=== PATIENT | female | born 1970 | race Caucasian/White ===

== ENCOUNTER 2018-04-10 09:15 | Emergency (ER) | payer OTHER, BC ==
[~2018-04-10] VITALS: Ht 177.8 cm; Wt 128.8 kg
[~2018-04-10 09:15] MED LIST: ALBUTEROL0.63 MG/3 NEB; BUTALB-ACETAMI1 EAC1; BUTALBIT-ACETA1 EACH PO; CLARITIN PO; DICLOFENAC SODI75 MG; DICYCLOMINE HCL20 MG PO; FLUTICASONE; GUMMI BEAR MUL1 EACH; HA MED; HYDROCHLOROTHIA25 MG PO; HYDROCODON-ACE1 EA11 PO; HYDROXYCHLOROQ200 MG PO; LASTACAFT3 ML OU; LORATADINE10 MG; MOBIC7.5 M1; NEXIUM40 MG PO; PANTANASE; TRAMADOL-ACETAMI1 EA; TYLENOL ER PO; ULTRAM 50MG50 MG PO; VENTOLIN HFA18 GM; VENTOLIN HFA18 GM INH; [UNRECOGNIZED DRUG - OTHER]; [UNRECOGNIZED DRUG - OTHER] RC
--- OUTSIDE RECORDS SUMMARY | 2018-04-10 09:19 | XMS REPORT | Encounter Summary ---
Author Organization Unknown Address [address] [place] [address] Phone [phone] Reason for Visit Medical Complaint Instructions 1. Acute respiratory distress patient follow up phone call 2. Acute exacerbation of asthma peak flow albuterol sulfate 2.5 mg/3 mL (0.083 %) solution for nebulization peak flow 3. Influenza-like symptoms rapid flu (A+B) 4. Body mass index 30+ - obesity body mass index: care instructions Discussion Note Pt is in NAD; Verbalizes understanding of all instructions with no questions at this time. Plan of Care Patient Instructions Based on the nature of your symptoms I recommend you report to the nearest ER immediately for further evaluation and recommendations. Reminders Provider Appointments None recorded. Lab Rapid Flu (A+B) 04/10/2018 [facility] Referral None recorded. Procedures None recorded. Surgeries None recorded. Imaging None recorded. Medications Name Start Date albuterol sulfate 2.5 mg/3 mL (0.083 %) solution for nebulization Give 1 inhalation every 20 minutes by nebulizer route as needed aspirin 81 mg chewable tablet Chew 1 tablet every day by oral route. Claritin Fioricet 50 mg-300 mg-40 mg capsule Take 1 capsule every 4 hours by oral route. Flucelvax Quad 6340-1922 (PF) 60 mcg (15 mcg x 4)/0.5 mL IM syringe TO BE ADMINISTERED BY PHARMACIST FOR IMMUNIZATION hydroxychloroquine 200 mg tablet niacin rosuvastatin 10 mg tablet Ventolin HFA 90 mcg/actuation aerosol inhaler Inhale 2 puffs every 4 hours by inhalation route. Xiidra 5 % eye drops in a dropperette Medications Administered Name Date albuterol sulfate 2.5 mg/3 mL (0.083 %) solution for nebulization Give 1 inhalation every 20 minutes by nebulizer route as needed [id number]:32 Vitals Height Weight BMI Blood Pressure 5 ft 9.5 in 273 lbs 39.7 kg/m2 118/78 mm[Hg] Lab Results Date Name Specimen Result Interpretation Description Value Range Status Address Peak Flow Pef 200 [facility]: 9 [facility] Percent Predicted Value 41 [facility]: 9 [facility] Rapid Flu (A+B) Influenza a negative [facility]: 9 [facility] Influenza B negative [facility]: 9 [facility] Peak Flow Pef 150 [facility]: 9 [facility] Percent Predicted Value 30% [facility]: 9 [facility] Allergies Code Code System Name Reaction Severity Status Onset 808144 RxNorm Dilaudid Active 4053 RxNorm Erythromycin Base Active Sulfa (Sulfonamide Antibiotics) Active Problems Name Status Onset Date Source Body Mass Index 30+ - Obesity Active 04/10/2018 Migraine Active 04/10/2018 Asthma Active 04/10/2018 Acute Exacerbation of Asthma Active 04/10/2018 Acute Respiratory Distress Active 04/10/2018 Gastroesophageal Reflux Disease Active 04/10/2018 Osteoarthritis Active 04/10/2018 Influenza-like Symptoms Active 04/10/2018 Procedures Date Name Performed by Information not available Tonsillectomy Information not available Cholecystectomy Information not available Hip Clevis Type 2 Posit Jnt Information not available Vaccine List Vaccine Type influenza, injectable, quadrivalent 03/25/2017 Social History Smoking Status Never Smoker Past Encounters 04/10/2018 Acute Respiratory Distress; Acute Exacerbation of Asthma; Influenza-like Symptoms; Body Mass Index 30+ - Obesity Cata Galdamez, [employer]: [address] [place] [address], Ph. History of Present Illness Wheezing / Cough Reported By: Patient HPI: Location: chest, nasal/sinus. Quality: congested, dyspnea, productive cough, dry cough, wheezy cough, wheezing, can't catch breath, can't get a deep breath. Severity: worsening, moderate. Duration: constant. Onset/Timing: gradual, daily. Context: no sick contacts, no foreign travel, allergies, hx of asthma. Modifying factors: OTC medication, inhaler:ventolin using how often?ventolin. Associated Symptoms: no fever, no chills, no sweats, no chest pain, no edema, no heartburn, no significant weight gain, no significant weight loss, no morning cough, no post nasal drip, no sore throat, no nausea, no vomiting, no diarrhea, no rash, no muscle aches, no headache, rust colored sputum, shortness of breath; nasal congestion, chest congestion, productive cough, and low grade fever Note:
Review of Systems:ROS as noted in the HPI Review of Systems Basic Reported By: Patient Physical Exam Adult Basic, Adult Female Complete Reported By: Patient Constitutional: General Appearance: obese. Level of Distress: mild distress. Ambulation: ambulating normally Psychiatric: Mental Status: active and alert. Orientation: to time, to place, to person Eyes: Lids and Conjunctivae: non-injected, no discharge, no pallor. Pupils: PERRLA. Corneas: grossly intact. EOM: EOMI. Lens: clear Oco-Baqz-Mwsxo-Throat: Ears: no lesions on external ear, no outer ear tenderness, EACs clear, TMs clear. Nose: no lesions on external nose, nares patent, no septal deviation, nasal passages clear, no sinus tenderness, nasal d ischarge--rhinorrhea, post nasal drip; B/L NTs pink and edematous. Lips, Teeth, and Gums: no mouth or lip ulcers, no bleeding gums, normal dentition. Oropharynx: moist mucous membranes, no erythema, no exudates, tonsils absent Neck: Neck: supple. Lymph Nodes: no cervical LAD Lungs: Respiratory effort: no dyspnea, no tachypnea, no use of accessory muscles, no intercostal retractions. Auscultation: breath sounds normal Cardiovascular: Heart Auscultation: RRR, no murmurs Neurologic: Gait and Station: normal gait, normal station. Cranial Nerves: grossly intact. Sensation: grossly intact Notes:
--- OUTSIDE RECORDS SUMMARY | 2018-04-10 09:19 | XMS REPORT | Continuity of Care Document ---
Author Author [facility] Interface Address Unknown Phone Unavailable Problems Problem Status Onset Date Classification Date Reported Comments Source Acute respiratory distress 04/10/2018 Diagnosis 04/10/2018 [facility] Body mass index 30+ - obesity 04/10/2018 Diagnosis 04/10/2018 [facility] Influenza-like symptoms 04/10/2018 Diagnosis 04/10/2018 [facility] Acute exacerbation of asthma 04/10/2018 Diagnosis 04/10/2018 [facility] Body Mass Index 30+ - Obesity 04/10/2018 Problem 04/10/2018 [facility] Migraine 04/10/2018 Problem 04/10/2018 [facility] Asthma 04/10/2018 Problem 04/10/2018 [facility] Acute Exacerbation of Asthma 04/10/2018 Problem 04/10/2018 [facility] Acute Respiratory Distress 04/10/2018 Problem 04/10/2018 [facility] Gastroesophageal Reflux Disease 04/10/2018 Problem 04/10/2018 [facility] Osteoarthritis 04/10/2018 Problem 04/10/2018 [facility] Influenza-like Symptoms 04/10/2018 Problem 04/10/2018 [facility] Medications Medication Details Route Status Patient Instructions Ordering Provider Order Date Source Albuterol 0.83 MG/ML Inhalant Solution albuterol sulfate 2.5 mg/3 mL (0.083 %) solution for nebulization Give 1 inhalation every 20 minutes by nebulizer route as needed Active [facility] Aspirin 81 MG Chewable Tablet aspirin 81 mg chewable tablet Chew 1 tablet every day by oral route. Active [facility] Claritin Claritin Active [facility] Acetaminophen 300 MG / butalbital 50 MG / Caffeine 40 MG Oral Capsule [Fioricet] Fioricet 50 mg-300 mg-40 mg capsule Take 1 capsule every 4 hours by oral route. Active [facility] 0.5 ML influenza A virus A/ (H1N1) antigen 0.03 MG/ML / influenza A virus A/ (H3N2) antigen 0.03 MG/ML / influenza B virus B/[place] antigen 0.03 MG/ML / influenza B virus B/ antigen 0.03 MG/ML Prefilled Syringe [Flucelvax Quadrivalent ] Flucelvax Quad (PF) 60 mcg (15 mcg x 4)/0.5 mL IM syringe TO BE ADMINISTERED BY PHARMACIST FOR IMMUNIZATION Active [facility] Hydroxychloroquine Sulfate 200 MG Oral Tablet hydroxychloroquine 200 mg tablet Active [facility] niacin niacin Active [facility] Rosuvastatin calcium 10 MG Oral Tablet rosuvastatin 10 mg tablet Active [facility] Albuterol 0.09 MG/ACTUAT Metered Dose Inhaler Ventolin HFA 90 mcg/actuation aerosol inhaler Inhale 2 puffs every 4 hours by inhalation route. Active [facility] lifitegrast 50 MG/ML Ophthalmic Solution [Xiidra] Xiidra 5 % eye drops in a dropperette Active [facility] Allergies, Adverse Reactions, Alerts Substance Category Reaction Severity Reaction type Status Date Reported Comments Source Sulfa (Sulfonamide Antibiotics) Allergy to substance 06/18/2017 [facility] Erythromycin Base Allergy to substance 06/18/2017 [facility] Dilaudid Allergy to substance 06/18/2017 [facility] Immunizations Immunization Date Given Site Status Last Updated Comments Source influenza, injectable, quadrivalent 03/25/2017 completed [facility] Results Order Name Results Value Reference Range Date Interpretation Comments Source PEF 200 04/10/2018 [facility] Percent Predicted Value 41 04/10/2018 [facility] Influenza A negative 04/10/2018 [facility] Influenza B negative 04/10/2018 [facility] PEF 150 04/10/2018 [facility] Percent Predicted Value 30 % 04/10/2018 [facility] Vital Signs Vital Sign Value Date Comments Source Diastolic (mm Hg) 78 04/10/2018 [facility] Height 69.5 04/10/2018 [facility] Systolic (mm Hg) 118 04/10/2018 [facility] Weight 273 04/10/2018 [facility] Encounters Location Location Details Encounter Type Encounter Number Reason For Visit Attending Provider ADM Date DC Date Status Source [place] - [facility] - [id number] RosasC: [address] [place] [address], Ph. [id number] Catamaurizio Galdamez 04/10/2018 [facility] Procedures Procedure Code Date Perfomer Comments Source [facility] Tonsillectomy [facility] Cholecystectomy [facility] Hip Clevis Type 2 Posit Jnt L2570 [facility]
[2018-04-10] MEDS ORDERED: SODIUM CHLORIDE 0.9% 1000ML 1,000 ML IV STA (09:31)
[2018-04-10] MEDS ORDERED: METHYLPREDNISOLONE SOD SUCC 125 MG/2ML VIAL IV NR (09:31)
[2018-04-10] MEDS ORDERED: PANTOPRAZOLE 40 MG 10ML VIAL IV NR (09:31)
[2018-04-10] MEDS ORDERED: ALBUTEROL SULF 0.083% NEB SOLN 3 ML NEB NEB NR (09:45)
[2018-04-10] MEDS ORDERED: IPRATROPIUM BROMIDE 0.02% 2.5 ML NEB NEB ONE (09:45)
[2018-04-10 10:14] LABS: BASOPHILS # (AUTO) 0.1 (0.0-0.1); BASOPHILS % 0.5 % (0.0-1.0); EOSINOPHILS # (AUTO) 0.3 (0.0-0.4); EOSINOPHILS % 2.6 % (0.0-6.0); HEMATOCRIT 42.9 % (34.2-44.1); HEMOGLOBIN 14.4 g/dL (12.0-16.0); LYMPHOCYTES # (AUTO) 2.6 (1.0-3.2); MEAN CORPUSCULAR HEMOGLOBIN 29.5 pg (28-32); MEAN CORPUSCULAR HGB CONC 33.6 g/dL (31-35); MEAN CORPUSCULAR VOLUME 87.9 fL (81-99); MONOCYTES # (AUTO) 0.5 (0.2-0.8); MONOCYTES % 4.3 % (4.4-11.3); NEUTROPHILS # (AUTO) 8.9 (2.1-6.9); NEUTROPHILS % 71.3 % (38.7-80.0); PLATELET COUNT 142 x10e3/uL (140-360); RED BLOOD COUNT 4.88 x10e6/uL (3.6-5.1); RED CELL DISTRIBUTION WIDTH 14.3 % (11.7-14.4)
[2018-04-10 10:25] LABS: INR 0.95; PARTIAL THROMBOPLASTIN TIME 26.9 seconds (23.8-35.5); PROTHROMBIN TIME 13.5 seconds (11.9-14.5)
[2018-04-10 10:35] LABS: ALANINE AMINOTRANSFERASE 16 IU/L (0-55); ALBUMIN 3.8 g/dL (3.5-5.0); ALBUMIN/GLOBULIN RATIO 1.2 (0.8-2.0); ALKALINE PHOSPHATASE 86 IU/L (40-150); ANION GAP 15.4 mmol/L (8-16); BLOOD UREA NITROGEN 8 mg/dL (7-26); BUN/CREATININE RATIO 13 (6-25); CALCIUM 8.7 mg/dL (8.4-10.2); CARBON DIOXIDE 24 mmol/L (22-29); CHLORIDE 104 mmol/L (98-107); CREATINE KINASE 57 IU/L (29-168); CREATININE, SERUM 0.61 mg/dL (0.57-1.11); EST GLOMERULAR FILTRATION RATE > 60 ML/MIN (60-); GLUCOSE 84 mg/dL (74-118); MAGNESIUM 2.2 MG/DL (1.3-2.1); POTASSIUM 3.4 mmol/L (3.5-5.1); SODIUM 140 mmol/L (136-145)
[2018-04-10 10:42] LABS: B-TYPE NATRIURETIC PEPTIDE2 22.1 pg/mL (0-100)
[2018-04-10 10:55] LABS: CLARITY,URINE CLEAR (CLEAR); COLOR,URINE YELLOW (YELLOW)
[2018-04-10 10:56] LABS: LEUKOCYTE ESTERASE ,URINE NEGATIVE (NEGATIVE); NITRITE,URINE NEGATIVE (NEGATIVE); PREGNANCY TEST, URINE NEGATIVE (NEGATIVE); PROTEIN,URINE DIPSTICK NEGATIVE (NEGATIVE)
[2018-04-10 10:57] LABS: BILIRUBIN,URINE NEGATIVE (NEGATIVE); KETONES,URINE NEGATIVE (NEGATIVE); URINE UROBILINOGEN 0.2 mg/dL (0.2 - 1)
[2018-04-10 10:59] LABS: BACTERIA,URINE FEW /HPF; RBC,URINE 0-5 /HPF (0-5); WBC,URINE (MAN) 0-5 /HPF (0-5)
[2018-04-10 11:03] LABS: EPITHELIAL CELLS,URINE FEW /LPF
--- NOTE | 2018-04-10 11:13 | Diagnostic Imaging Report ---
EXAMINATION: PA and lateral views of the chest. COMPARISON: None CLINICAL HISTORY: Shortness of breath, cough DISCUSSION: Lines/tubes: None. Lungs: The lungs are well inflated and clear. No pneumonia or pulmonary edema. Pleura: No pleural effusion or pneumothorax. Heart and mediastinum: The cardiomediastinal silhouette is normal. Bones and soft tissues: No acute bony abnormalities. IMPRESSION: No acute cardiopulmonary abnormalities. Signed by: Dr. Kendrick Costello M.D. on 04/10/2018 11:10 AM
[2018-04-10 12:02] VITALS: BP 142/68
== END 2018-04-10 12:17 | disposition home or self-care (01) ==
LOC: ER 09:15
DX: R06.00 Dyspnea, unspecified (principal); J45.31 Mild persistent asthma with (acute) exacerbation; J20.9 Acute bronchitis, unspecified; I10 Essential (primary) hypertension
CPT/HCPCS: 36415; 71046; 80053; 81001; 81025; 82550; 82553; 83605; 83735; 83880; 84484; 85025; 85610; 85730; 87040; 87086; 93005; 94640; 99284; J2930; J7030